=== PATIENT | male | born 1950 | race Caucasian/White ===

== ENCOUNTER 2020-09-21 10:23 | Outpatient (CLI) | payer MEDICARE ==
[2020-09-21 19:17] LABS: SARS-CoV-2 PCR by NAA Not Detected (NotDetected)
== END 2020-09-21 10:24 | disposition home or self-care (01) ==
LOC: LABBT 10:23
PROVIDERS: ATTEND Ophthalmology Retina Specialist
DX: Z01.818 Encounter for other preprocedural examination (principal)
CPT/HCPCS: U0003; U0005; 87635

== ENCOUNTER 2020-09-25 06:38 | Day surgery (SDC) | payer MEDICARE ==
[2020-09-24 13:11] VITALS: BMI 29.5
[~2020-09-25 06:38] MED LIST: Fentanyl 100 MCG/2 ML VIAL ONE; Midazolam HCl 2 mg/2 ml Vial ONE
[2020-09-25] MEDS ORDERED: EPINEPHrine 0.3 MG in Ophthalmic Irrigation Solution 500 ML IRR SCH (06:45)
[2020-09-25] MEDS ORDERED: Cyclopentolate 1% Ophth Drops 15 ML BOT ONE (07:10)
[2020-09-25] MEDS ORDERED: Phenylephrine 2.5% Ophth Soln 5 ML BOT ONE (07:10)
[2020-09-25] MEDS ORDERED: Indocyanine Green 25 MG/10 ML VIAL ONE (07:45)
[2020-09-25] MEDS ORDERED: PROPOFOL 200 MG/20 ML VIAL ONE (07:45)
[2020-09-25] MEDS ORDERED: Lidocaine 1% PF 5 ML VIAL ONE (07:45)
[2020-09-25] MEDS ORDERED: CEFAZOLIN 1 GM VIAL ONE (07:45)
[2020-09-25] MEDS ORDERED: Triamcinolone 40 MG/ML VIAL ONE (07:45)
[2020-09-25] MEDS ORDERED: Maxitrol 0.1% Opth Oint 3.5 GM TUBE ONE (07:45)
[2020-09-25] MEDS ORDERED: Lidocaine 4% PF 5 ML AMP ONE (07:45)
== END 2020-09-25 09:10 | disposition home or self-care (01) ==
LOC: SDC 06:38
PROVIDERS: ATTEND Ophthalmology Retina Specialist
PROC: 08T43ZZ Resection of Right Vitreous, Percutaneous Approach (ICD-10-PCS; principal; 2020-09-25)
PROC: 08NE3ZZ Release Right Retina, Percutaneous Approach (ICD-10-PCS; 2020-09-25)
DX: H35.371 Puckering of macula, right eye (principal); I10 Essential (primary) hypertension; E78.5 Hyperlipidemia, unspecified; Z79.899 Other long term (current) drug therapy
CPT/HCPCS: J0171; J0690; J2250; J2704; J3010; J3301